=== PATIENT | female | born 1990 | race American Indian/Alaskan Native ===

== ENCOUNTER 2017-06-10 11:43 | Emergency (ER) | payer SELFPAY ==
[2017-06-10 11:57] VITALS: BP 108/73; PULSE 77; RESP 18; TEMP 98.9; O2SAT 100
== END 2017-06-10 13:35 | disposition left against medical advice (07) ==
LOC: C.ER 11:43
DX: Z02.89 Encounter for other administrative examinations (principal); R10.9 Unspecified abdominal pain

== ENCOUNTER 2017-09-10 13:24 | Emergency (ER) | payer MEDICAID ==
[2017-09-10 13:35] VITALS: TEMP 98.1; O2SAT 98
--- NOTE | 2017-09-10 14:11 | C.PDOC ---
History Of Present Illness 27 y/o female presents to the ED complaining of a lump on right breast above nipple with redness x 3 days. Pain increases (about 9/10) on touch and she has never felt this type of pain before. Patient states that no drainage or pus was noted from actual site or either of the nipples. She has no dimpling of the skin. Last normal menstrual period was on 08/12/17 and patient has never been . Denies fever or any further medical complaints. There is no family history of breast cancer. Time Seen by Provider: 09/10/17 13:46 Chief Complaint (Nursing): Breast Problem History Per: Patient History/Exam Limitations: no limitations Onset/Duration Of Symptoms: Days (x3 days) Current Symptoms Are (Timing): Still Present Past Medical History Reviewed: Historical Data, Nursing Documentation, Vital Signs Vital Signs: Last Vital Signs Temp 98.1 F 09/10/17 13:32 Pulse 87 09/10/17 13:32 Resp 20 09/10/17 13:32 BP 138/82 09/10/17 13:32 Pulse Ox 98 09/10/17 15:25 Surgical History: No Surg Hx Family History: States: Unknown Family Hx - Social History Hx Tobacco Use: Yes (2-3 cigarettes daily) Hx Alcohol Use: Yes (Socially) Hx Substance Use: No - Immunization History Hx Tetanus Toxoid Vaccination: Yes (2014) Hx Influenza Vaccination: No Hx Pneumococcal Vaccination: No Review Of Systems Except As Marked, All Systems Reviewed And Found Negative. (As per HPI, otherwise negative) Constitutional: Negative for: Fever Skin: Positive for: Other (lump on right breast above nipple with redness ) Physical Exam - Physical Exam Appears: Well, No Acute Distress Skin: Normal Color, Warm, Dry, Other (On the right breast a soft nodule of size little smaller than a quarter right above the right nipple with erythema was noted. Nodule is soft, firm, mobile under the tissue and no skin dimpling is noted.) Head: Atraumatic, Normacephalic Nose: Normal Throat: Normal Neck: Normal Chest: Symmetrical Cardiovascular: Rhythm Regular, No Murmur Respiratory: Normal Breath Sounds, No Accessory Muscle Use Gastrointestinal/Abdominal: Normal Exam, Soft, No Tenderness Back: Normal Inspection Extremity: Normal ROM, No Deformity Neurological/Psych: Oriented x3 ED Course And Treatment - Laboratory Results Result Diagrams: 09/10/17 14:27 Lab Interpretation: Abnormal (Elevated WBC 13.5) O2 Sat by Pulse Oximetry: 98 (RA) Pulse Ox Interpretation: Normal Reevaluation Time: 16:30 Reassessment Condition: Unchanged Medical Decision Making Medical Decision Making: Time: 14:03 Plan: Beta- HCG CBC w/ diff US breast Time: 15:09 Breast US FINDINGS: RIGHT BREAST: Hypoechoic lesion has been identified at the 11-12 o'clock radius right areolar region measuring 1.7 by 1.1 x 0.6 cm appears hypoechoic but inhomogeneous in internal echotexture and is well circumscribed in the periphery. Edematous changes are questioned in local ligaments. Post acoustic enhancement is relatively prominent. No shadowing seen related to this structure and there is a minimal peripheral increased blood flow on color Doppler ultrasound. This is unlikely represent a definite abscess although debris within a dilated duct is a possibility. Inspissated debris within a sebaceous cyst is a possibility as well. This is not felt to represent a malignancy, however, follow-up ultrasonography is advised in 3 months for to further demonstrate stability or resolution of this finding. Follow ultrasound the right axilla is also required as there is a likely reactive lymph node measuring 2.1 by 0.8 by 1.5 cm the right axilla. IMPRESSION: 1.7 cm hypoechoic lesions identified at the 11-12 o'clock radius right areolar breast, nonspecific in appearance. May represent inspissated debris within a dilated duct since is close to the ear right nipple. Debris within a sebaceous cyst is a possibility. An abscess is not favored. A reactive lymph node is seen at the right axilla as well. Follow-up limited right breast ultrasound is advised in 3 months including the palpable abnormality and the right axilla. Weekly self-breast examination is also recommended. BIRADS: BIRADS 3 Probably Benign Scribe Attestation: Documented by Cheryl Schmitt acting as a scribe for Susan Garcia MD. Scribe Attestation: All medical record entries made by the Scribe were at my direction and personally dictated by me. I have reviewed the chart and agree that the record accurately reflects my personal performance of the history, physical exam, medical decision making, and the department course for this patient. I have also personally directed, reviewed, and agree with the discharge instructions and disposition. Disposition Counseled Patient/Family Regarding: Studies Performed, Diagnosis, Need For Followup, Rx Given - Disposition Referrals: Sabiha Coley MD [Staff Provider] - Disposition: HOME/ ROUTINE Disposition Time: 16:31 Condition: STABLE Prescriptions: Cephalexin [cephalexin] 500 mg PO TID #30 cap Sulfamethoxazole/Trimethoprim [Bactrim DS 800 mg-160 mg] 1 tab PO BID #20 tab Instructions: Breast Self Exam for Women (ED), Breast Mass (ED) Forms: [facility] ([place]) - Clinical Impression Clinical Impression: Cyst of breast
[2017-09-10 14:31] LABS: BASO # 0.1 K/uL (0.0-0.2); BASO % 0.9 % (0.0-2.0); EOS # 0.1 K/uL (0.0-0.7); EOS % 0.5 % (0.0-4.0); LYMPH # 2.3 K/uL (1.0-4.3); LYMPH % 16.7 % (20.0-40.0); MEAN CELL VOLUME 88.4 fL (81.0-99.0); MEAN CORPUSCULAR HEMOGLOBIN 29.9 pg (27.0-31.0); MEAN CORPUSCULAR HGB CONC 33.8 g/dL (33.0-37.0); MEAN PLATELET VOLUME 7.8 fL (7.2-11.7); MONO # 0.6 K/uL (0.0-0.8); MONO % 4.2 % (0.0-10.0); RED CELL DISTRIBUTION WIDTH 13.2 % (11.5-14.5); WHITE BLOOD COUNT 13.5 K/uL (4.8-10.8)
--- NOTE | 2017-09-10 15:11 | US ---
HISTORY: TECHNIQUE: A targeted sonographic evaluation of right breast was performed at the site of the palpable abnormality. FINDINGS: RIGHT BREAST: Hypoechoic lesion has been identified at the 11-12 o'clock radius right areolar region measuring 1.7 by 1.1 x 0.6 cm appears hypoechoic but inhomogeneous in internal echotexture and is well circumscribed in the periphery. Edematous changes are questioned in local ligaments. Post acoustic enhancement is relatively prominent. No shadowing seen related to this structure and there is a minimal peripheral increased blood flow on color Doppler ultrasound. This is unlikely represent a definite abscess although debris within a dilated duct is a possibility. Inspissated debris within a sebaceous cyst is a possibility as well. This is not felt to represent a malignancy, however, follow-up ultrasonography is advised in 3 months for to further demonstrate stability or resolution of this finding. Follow ultrasound the right axilla is also required as there is a likely reactive lymph node measuring 2.1 by 0.8 by 1.5 cm the right axilla. IMPRESSION: 1.7 cm hypoechoic lesions identified at the 11-12 o'clock radius right areolar breast, nonspecific in appearance. May represent inspissated debris within a dilated duct since is close to the ear right nipple. Debris within a sebaceous cyst is a possibility. An abscess is not favored. A reactive lymph node is seen at the right axilla as well. Follow-up limited right breast ultrasound is advised in 3 months including the palpable abnormality and the right axilla. Weekly self-breast examination is also recommended. BIRADS: BIRADS 3 Probably Benign Recommendation: Short-interval 6-month follow-up
[2017-09-10 16:45] VITALS: BP 118/74; PULSE 70; RESP 16
== END 2017-09-10 16:43 | disposition home or self-care (01) ==
LOC: C.ER 13:24
DX: N60.01 Solitary cyst of right breast (principal)

== ENCOUNTER 2017-11-13 13:54 | Emergency (ER) | payer MEDICAID ==
[2017-11-13] MEDS ORDERED: Sodium Chloride 0.9% 1,000 ML IV ONE (15:04)
--- NOTE | 2017-11-13 15:30 | RAD ---
HISTORY: cough, vomiting, fever COMPARISON: None available. TECHNIQUE: Chest PA and lateral FINDINGS: LUNGS: No focal consolidation. Please note that chest x-ray has limited sensitivity for the detection of pulmonary masses. PLEURA: No significant pleural effusion identified. No definite pneumothorax . CARDIOVASCULAR: Heart size appears within normal limits. OSSEOUS STRUCTURES: No acute osseous abnormality identified. VISUALIZED UPPER ABDOMEN: Unremarkable. OTHER FINDINGS: None. IMPRESSION: No focal consolidation identified.
[2017-11-13 15:57] LABS: BASO % 0.5 % (0.0-2.0); EOS % 0.2 % (0.0-4.0); HEMOGLOBIN 13.7 g/dL (11.0-16.0); LYMPH # 1.6 K/uL (1.0-4.3); LYMPH % 40.9 % (20.0-40.0); MEAN CELL VOLUME 86.7 fL (81.0-99.0); MEAN CORPUSCULAR HEMOGLOBIN 29.8 pg (27.0-31.0); MEAN CORPUSCULAR HGB CONC 34.4 g/dL (33.0-37.0); MONO # 0.4 K/uL (0.0-0.8); MONO % 10.1 % (0.0-10.0); NEUT # 1.9 K/uL (1.8-7.0); NEUT % 48.3 % (50.0-75.0); NRBC % 0.1 % (0.0-2.0); RBC 4.6 Mil/uL (3.80-5.20); RED CELL DISTRIBUTION WIDTH 13.7 % (11.5-14.5)
[2017-11-13] MEDS ORDERED: Sodium Chloride 0.9% 1,000 ML ONE (15:57)
[2017-11-13 15:59] LABS: WHITE BLOOD COUNT 3.9 K/uL (4.8-10.8)
[2017-11-13 16:05] LABS: HCG,QUALITATIVE URINE NEGATIVE (NEGATIVE)
[2017-11-13 16:13] LABS: SQUAMOUS EPITHIAL 16 /hpf (0-5); URINE BACTERIA MANY (<OCC); URINE BILIRUBIN NEGATIVE (NEGATIVE); URINE BLOOD 2+ (NEGATIVE); URINE CLARITY Hazy (Clear); URINE COLOR Amber (YELLOW); URINE GLUCOSE (UA) NORMAL (Normal); URINE LEUKOCYTE ESTERASE 2+ Leu/uL (Negative); URINE NITRATE NEGATIVE (NEGATIVE); URINE PROTEIN 2+ mg/dL (NEGATIVE)
[2017-11-13 16:14] LABS: ALBUMIN 3.9 g/dL (3.5-5.0); ALT/SGPT 43 U/L (9-52); AST/SGOT 56 U/L (14-36); BLOOD UREA NITROGEN 8 mg/dL (7-17); CALCIUM 8.4 mg/dl (8.6-10.4); GFR AFRICAN-AMERICAN > 60; GFR NON-AFRICAN AMERICAN > 60; LIPASE 121 U/L (23-300)
[2017-11-13] MEDS ORDERED: Potassium Chloride 20 mEq/15 ml LIQ UD PO STA (16:46)
--- NOTE | 2017-11-13 17:25 | C.PDOC ---
History Of Present Illness 27-year-old female, presents to the emergency department with complaints of four -day duration of intermittent non-bloody/non-bilious vomiting and non-bloody/ watery diarrhea that is associated with fever/chills. Patient reports she is unable to tolerate PO at home, and is feeling increased weakness. Denies any shortness of breath, chest pain, back pain, dizziness, headache, or any other associated associated symptoms. No other complaints at this time. Time Seen by Provider: 11/13/17 14:45 Chief Complaint (Nursing): GI Problem History Per: Patient History/Exam Limitations: no limitations Onset/Duration Of Symptoms: Days Current Symptoms Are (Timing): Still Present Severity: Moderate Past Medical History Reviewed: Historical Data, Nursing Documentation, Vital Signs Vital Signs: Last Vital Signs Temp 98.1 F 11/13/17 18:04 Pulse 84 11/13/17 18:04 Resp 16 11/13/17 18:04 BP 138/76 11/13/17 18:04 Pulse Ox 99 11/13/17 18:50 Family History: States: No Known Family Hx - Social History Hx Tobacco Use: Yes (2-3 cigarettes daily) Hx Alcohol Use: Yes (Socially) Hx Substance Use: No - Immunization History Hx Tetanus Toxoid Vaccination: Yes (2014) Hx Influenza Vaccination: No Hx Pneumococcal Vaccination: No Review Of Systems Except As Marked, All Systems Reviewed And Found Negative. Constitutional: Positive for: Fever, Chills Respiratory: Positive for: Cough. Negative for: Shortness of Breath, Sputum, Wheezing Gastrointestinal: Positive for: Nausea, Vomiting, Diarrhea. Negative for: Abdominal Pain Genitourinary: Negative for: Dysuria, Frequency, Vaginal Discharge, Vaginal Bleeding Musculoskeletal: Negative for: Back Pain Neurological: Negative for: Weakness, Numbness, Headache, Dizziness Physical Exam - Physical Exam Appears: Non-toxic, No Acute Distress Skin: Normal Color, Warm, Dry, No Rash Head: Normacephalic Eye(s): bilateral: PERRL Nose: Normal Oral Mucosa: Moist Throat: No Erythema, No Exudate Neck: Normal ROM, Trachea Midline, Supple ((-)meningeal signs) Cardiovascular: Rhythm Regular, No Murmur Respiratory: Normal Breath Sounds, No Accessory Muscle Use Gastrointestinal/Abdominal: Soft, No Tenderness, No Guarding, No Rebound Extremity: Normal ROM, No Deformity, No Swelling Neurological/Psych: Oriented x3, Normal Speech ED Course And Treatment - Laboratory Results Result Diagrams: 11/13/17 15:52 11/13/17 15:52 O2 Sat by Pulse Oximetry: 99 (RA) Pulse Ox Interpretation: Normal - Radiology CXR: Interpreted by Me CXR Interpretation: Yes: No Acute Disease. No: Infiltrates Progress Note: xrays are negative. Medical Decision Making Medical Decision Making: Plan: * Bloodwork, UA and U culture ordered and reviewed. Patient treated with Zofran , Toradol and KCl. Potassium is low. Patient given KCL PO and IV. On re-exam, the patient reports improvement of symptoms. Lungs are CTA, heart is RRR, abdomen is soft, non-tender and tolerating PO well. Ambulatory in the ED with steady gait. Follow up with the medical doctor within 1-2 days. Return if worsened. Disposition - Disposition Referrals: [facility] [Outside] Disposition: HOME/ ROUTINE Disposition Time: 18:06 Condition: GOOD Additional Instructions: Follow up with the medical doctor within 1-2 days. Return if worsened. Prescriptions: Cephalexin [Keflex] 500 mg PO BID #19 capsule Ibuprofen [Motrin] 600 mg PO TID #21 tab predniSONE [Prednisone] 20 mg PO BID #10 tab Instructions: Viral Syndrome (DC) Forms: [facility] (Portuguese), Work Excuse - Clinical Impression Clinical Impression: Hypokalemia, Viral syndrome, Gastroenteritis - Scribe Statement The provider has reviewed the documentation as recorded by the Scribe (Wei Chase) All medical record entries made by the Scribe were at my direction and personally dictated by me. I have reviewed the chart and agree that the record accurately reflects my personal performance of the history, physical exam, medical decision making, and the department course for this patient. I have also personally directed, reviewed, and agree with the discharge instructions and disposition.
[2017-11-13] MEDS ORDERED: Potassium Chloride 20 mEq/15 ml LIQ UD ONE (17:42)
[2017-11-13 19:23] VITALS: BP 111/73; PULSE 85; RESP 20; TEMP 98.7; O2SAT 100
== END 2017-11-13 19:40 | disposition home or self-care (01) ==
LOC: C.ER 13:54
DX: K52.9 Noninfective gastroenteritis and colitis, unspecified (principal); B34.9 Viral infection, unspecified; E87.6 Hypokalemia
CPT/HCPCS: 71046; 80053; 81001; 83690; 84703; 85025; 87086; 87181; 96361; 96374; 99285; J2405; J3480; J7040

== ENCOUNTER 2019-02-07 16:08 | Emergency (ER) | payer BC, MEDICAID ==
[2019-02-07 16:21] VITALS: O2SAT 99
--- NOTE | 2019-02-07 16:31 | C.PDOC ---
History Of Present Illness 29 year old female presents with intermittent LLQ colicky pain since yesterday associated with loose bowel movements. Patient states the pain is worse when she stands or before a bowel movement. Denies nausea, vomiting, or fever. Past surgical Hx is negative, no sick contact. Time Seen by Provider: 02/07/19 16:25 Chief Complaint (Nursing): Abdominal Pain History Per: Patient History/Exam Limitations: no limitations Onset/Duration Of Symptoms: Other (Yesterday) Current Symptoms Are (Timing): Still Present Quality Of Discomfort: Unable To Describe Associated Symptoms: denies: Fever, Nausea, Vomiting Exacerbating Factors: None Alleviating Factors: None Recent travel outside of the [place]: No Abnormal Vaginal Bleeding: No Past Medical History Reviewed: Historical Data, Nursing Documentation, Vital Signs Vital Signs: Last Vital Signs Temp 97.9 F 02/07/19 16:17 Pulse 90 02/07/19 16:17 Resp 18 02/07/19 16:17 BP 120/82 02/07/19 16:17 Pulse Ox 99 02/07/19 16:17 Primary Care Provider: Roseanna Monteiro Family History: States: Unknown Family Hx - Social History Hx Tobacco Use: Yes (2-3 cigarettes daily) Hx Alcohol Use: Yes (Socially) Hx Substance Use: No - Immunization History Hx Tetanus Toxoid Vaccination: Yes (2014) Hx Influenza Vaccination: No Hx Pneumococcal Vaccination: No Review Of Systems Except As Marked, All Systems Reviewed And Found Negative. Constitutional: Negative for: Fever Respiratory: Negative for: Cough Gastrointestinal: Positive for: Abdominal Pain, Other (Loose bowel movements). Negative for: Nausea, Vomiting Physical Exam - Physical Exam Appears: Non-toxic Skin: Normal Color, Warm Head: Atraumatic, Normacephalic Eye(s): bilateral: Normal Inspection Oral Mucosa: Moist Neck: Normal, Supple Chest: Symmetrical, No Tenderness Cardiovascular: Rhythm Regular Respiratory: Normal Breath Sounds, No Rales, No Rhonchi, No Wheezing Gastrointestinal/Abdominal: Soft, Tenderness (Mild LLQ), No Guarding, No Rebound Neurological/Psych: Oriented x3, Normal Speech ED Course And Treatment - Laboratory Results Result Diagrams: 02/07/19 17:07 02/07/19 17:07 O2 Sat by Pulse Oximetry: 99 (Room air) Pulse Ox Interpretation: Normal Medical Decision Making Medical Decision Making: Plan: * Blood work * Urinalysis * Bentyl * Lomotil * IV fluids Disposition Counseled Patient/Family Regarding: Studies Performed, Diagnosis, Need For Followup, Rx Given - Disposition Referrals: YOUR,PMD [Other] Disposition: HOME/ ROUTINE Disposition Time: 18:45 Condition: IMPROVED Prescriptions: Ibuprofen [Motrin] 600 mg PO Q6 #30 tab Loperamide HCl [Imodium A-D] 2 mg PO DAILY PRN #12 capsule PRN Reason: Diarrhea Nitrofurantoin Macrocrystals [Macrobid] 1 cap PO BID #14 cap Phenazopyridine HCl [Pyridium] 200 mg PO BID #6 tablet Instructions: Urinary Tract Infection, Adult (DC), Diarrhea and Traveler's Diarrhea, Adult (DC) Forms: [facility] (Ukrainian), Work Excuse - Clinical Impression Clinical Impression: Abdominal pain, UTI (urinary tract infection), Diarrhea - Scribe Statement The provider has reviewed the documentation as recorded by the Scribesmer Gonzalez All medical record entries made by the Mahinibesmer were at my direction and personally dictated by me. I have reviewed the chart and agree that the record accurately reflects my personal performance of the history, physical exam, medical decision making, and the department course for this patient. I have also personally directed, reviewed, and agree with the discharge instructions and disposition.
[2019-02-07] MEDS ORDERED: Sodium Chloride 0.9% 500 ML IV ONE ×2 (16:33→16:55)
[2019-02-07] MEDS ORDERED: Atropine-Diphenoxylate 0.025-2.5 mg Tab PO STA (16:33)
[2019-02-07] MEDS ORDERED: Atropine-Diphenoxylate 0.025-2.5 mg Tab ONE (16:55)
[2019-02-07 17:13] LABS: BASO # 0.1 K/uL (0.0-0.2); BASO % 0.7 % (0.0-2.0); EOS % 0.4 % (0.0-4.0); LYMPH # 1.5 K/uL (1.0-4.3); LYMPH % 14.9 % (20.0-40.0); MEAN CELL VOLUME 85.4 fL (81.0-99.0); MEAN CORPUSCULAR HEMOGLOBIN 29.3 pg (27.0-31.0); MEAN CORPUSCULAR HGB CONC 34.3 g/dL (33.0-37.0); MEAN PLATELET VOLUME 7.8 fL (7.2-11.7); MONO # 0.6 K/uL (0.0-0.8); MONO % 6.2 % (0.0-10.0); NEUT # 7.7 K/uL (1.8-7.0); NEUT % 77.8 % (50.0-75.0); RBC 4.43 Mil/uL (3.80-5.20); RED CELL DISTRIBUTION WIDTH 14.4 % (11.5-14.5)
[2019-02-07 17:20] LABS: HCG,QUALITATIVE URINE NEGATIVE (NEGATIVE)
[2019-02-07 17:24] LABS: SQUAMOUS EPITHIAL 3 /hpf (0-5); URINE BACTERIA MANY (<OCC); URINE BILIRUBIN NEGATIVE (NEGATIVE); URINE BLOOD 2+ (NEGATIVE); URINE CLARITY Hazy (Clear); URINE COLOR Yellow (YELLOW); URINE GLUCOSE (UA) NORMAL (Normal); URINE LEUKOCYTE ESTERASE 3+ Leu/uL (Negative); URINE PROTEIN 1+ mg/dL (NEGATIVE); URINE UROBILINOGEN NORMAL mg/dL (0.2-1.0)
[2019-02-07 17:32] LABS: BLOOD UREA NITROGEN 8 mg/dL (7-17); CALCIUM 8.8 mg/dl (8.6-10.4); GFR NON-AFRICAN AMERICAN > 60
[2019-02-07 18:58] VITALS: BP 106/69; PULSE 59; RESP 16; TEMP 98.1
== END 2019-02-07 19:22 | disposition home or self-care (01) ==
LOC: C.ER 16:08
DX: R19.7 Diarrhea, unspecified (principal); N39.0 Urinary tract infection, site not specified; R10.32 Left lower quadrant pain; F17.210 Nicotine dependence, cigarettes, uncomplicated
CPT/HCPCS: 80048; 81001; 84703; 85025; 96365; 96375; 99283; J0696; J1885; J7040